=== PATIENT | female | born 1945 | race Caucasian/White ===

== ENCOUNTER 2017-06-25 09:54 | Outpatient (CLI) | payer MEDICARE, OTHER ==
--- NOTE | 2017-06-25 13:12 | RAD ---
FOUR VIEWS LUMBAR SPINE: History: Low back pain with extension of the right hip x many years. Comparison: None. FINDINGS: AP, lateral neural, lateral extension, and lateral flexion of the lumbar spine is submitted for inter pretation. There is leftward curvature of the lumbar spine. There are five lumbar type vertebral bodi es. Lumbar spine vertebral body height is maintained. No fracture. In the neutral position, no eviden ce of significant spondylolisthesis. No abnormal translation of motion upon flexion or extension. Atherosclerosis is identified. IMPRESSION: 1. Levoscoliosis of the lumbar spine. No abnormal translation of motion. POS: [facility]
== END 2017-06-25 09:55 | disposition home or self-care (01) ==
LOC: TBSIIMAG 09:54
PROVIDERS: ATTEND Surgery
DX: M54.5 Low back pain (principal); M41.9 Scoliosis, unspecified
CPT/HCPCS: 72110

== ENCOUNTER 2020-11-28 10:52 | Day surgery (SDC) | payer MEDICARE, OTHER ==
[2020-11-27 11:47] VITALS: BMI 24.0
== END 2020-11-28 15:30 | disposition home or self-care (01) ==
LOC: SDC 10:52
PROVIDERS: ATTEND Internal Medicine Gastroenterology
PROC: 06L38CZ Occlusion of Esophageal Vein with Extraluminal Device, Via Natural or Artificial Opening Endoscopic (ICD-10-PCS; principal; 2020-11-28)
DX: K75.4 Autoimmune hepatitis (principal); K74.69 Other cirrhosis of liver; I85.10 Secondary esophageal varices without bleeding; K31.89 Other diseases of stomach and duodenum; K44.9 Diaphragmatic hernia without obstruction or gangrene; E11.9 Type 2 diabetes mellitus without complications; M19.90 Unspecified osteoarthritis, unspecified site; Z87.891 Personal history of nicotine dependence; Z79.84 Long term (current) use of oral hypoglycemic drugs; Z79.899 Other long term (current) drug therapy; Z88.2 Allergy status to sulfonamides; Z88.6 Allergy status to analgesic agent